=== PATIENT | male | born 1980 | race Caucasian/White ===

== ENCOUNTER 2020-04-30 23:33 | Emergency (ER) | payer MEDICARE, OTHER ==
[~2020-04-30] VITALS: Ht 157.5 cm; Wt 61.2 kg
[2020-05-01 00:33] VITALS: BP 130/79
--- NOTE | 2020-05-01 02:51 | NUR ---
Patient discharged to home in stable condition. Written and verbal after care instructions given. Patient verbalizes understanding of instruction. Pt ambulatory w/ steady gait.
== END 2020-05-01 03:24 | disposition home or self-care (01) ==
LOC: ER 23:33
DX: U07.1 COVID-19 (principal); J45.909 Unspecified asthma, uncomplicated; R91.8 Other nonspecific abnormal finding of lung field; F31.9 Bipolar disorder, unspecified; Z90.49 Acquired absence of other specified parts of digestive tract; E11.9 Type 2 diabetes mellitus without complications
CPT/HCPCS: 71045-TC; C9803; U0003